=== PATIENT | male | born 1965 | race Caucasian/White ===

== ENCOUNTER → 2019-10-25 | Outpatient (CLI) | payer MEDICARE, OTHER ==
--- NOTE | 2019-10-25 13:27 | RADIOLOGY REPORT (SQ) ---
EXAM DESCRIPTION: BARIUM SWALLOW ESOPHAGUS IMAGES COMPLETED DATE/TIME: 10/25/2019 9:34 am REASON FOR STUDY: DYSPHAGIA, OROPHARYNGEAL PHASE R13.12 DYSPHAGIA, OROPHARYNGEAL PHASE HISTORY OF N [facility] RADIATION. COMPARISON: None. TECHNIQUE: Under fluoroscopic guidance, patient ingested effervescent granules followed by thick and thin barium. Fluoroscopic spot images and routine radiographic images acquired and stored on PACS. 12 MM BARIUM TABLET GIVEN: Barium tablet passed easily through the esophagus and into the stomach wit hout delay. LIMITATIONS: None. FLUOROSCOPY TIME: FLUORO TIME: 2.5 minutes 5 images saved to PACS. FINDINGS: NEUROMUSCULAR COORDINATION OF SWALLOW: Normal. No aspiration. ESOPHAGEAL MOTILITY: Normal peristalsis. No esophageal spasm. ESOPHAGEAL MUCOSA: Small anterior web in the upper esophagus just above the cricopharyngeus. The cri copharyngeus causes a mild posterior impression on the upper esophagus. Normal esophageal mucosa wit hout masses or ulceration. GASTRO-ESOPHAGEAL JUNCTION: Tiny hiatal hernia. No reflux seen. NON-GI TRACT STRUCTURES: No significant finding. OTHER: No other significant finding. IMPRESSION: SMALL ANTERIOR WEB IN THE UPPER ESOPHAGUS WITH MILD CRICOPHARYNGEUS HYPERTROPHY. TINY H IATAL HERNIA. OTHERWISE UNREMARKABLE STUDY RECOMMENDATION: NONE COMMENT: NONE Quality ID [id number]: Final reports for procedures using fluoroscopy that document radiation exposure mildred cresencio, or exposure time and number of fluorographic images (if radiation exposure indices are not avail able) TECHNICAL DOCUMENTATION: JOB ID: [id number] 2010 [employer]- All Rights Reserved Reading location - IP/workstation name: [email or web address] [id number]
== END ==
LOC: RAD 09:05
PROVIDERS: ATTEND Internal Medicine Gastroenterology
DX: K44.9 Diaphragmatic hernia without obstruction or gangrene (principal); J39.2 Other diseases of pharynx; R13.12 Dysphagia, oropharyngeal phase; K21.9 Gastro-esophageal reflux disease without esophagitis
CPT/HCPCS: 74220

== ENCOUNTER 2020-01-26 00:17 | Emergency (ER) | payer MEDICARE, OTHER ==
[2020-01-26] MEDS ORDERED: HYDROMORPHONE HCL INJ/PF 2 MG/ML AMPULE IM ONE (00:44)
--- NOTE | 2020-01-26 00:46 | ER Document Report ---
ED Medical Screen (RME) - General Chief Complaint: Low Back Pain Stated Complaint: LOWER BACK PAIN Time Seen by Provider: 01/26/20 00:37 Primary Care Provider: INES WEAVER MD [Primary Care Provider] - Follow up as needed Mode of Arrival: Medic Information source: Patient Notes: Patient presents complaining of low back pain that started 5 days ago. 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 Patient states that the pain gradually started to worsen and moved midline and shoots up his spine. Patient states that he has had difficulty getting up to ambulate because of the severity of the pain. Patient denies any fever. Patient denies any trauma. Patient denies any history of chronic back pain. Patient does have a history of hypertension and nasopharyngeal cancer that is in remission. I have greeted and performed a rapid initial assessment of this patient. A comprehensive ED assessment and evaluation of the patient, analysis of test results and completion of the medical decision making process will be conducted by additional ED providers. - Related Data Allergies/Adverse Reactions: acetaminophen Allergy (Verified 01/26/20 00:44) amoxicillin [From Augmentin] Allergy (Verified 01/26/20 00:44) clavulanic acid [From Augmentin] Allergy (Verified 01/26/20 00:44) gabapentin Allergy (Verified 01/26/20 00:44) Physical Exam - Vital signs Vitals: Temp Pulse Resp BP Pulse Ox 98.4 F 99 20 132/81 H 97 01/26/20 00:24 01/26/20 00:24 01/26/20 00:24 01/26/20 00:24 01/26/20 00:24 - General General appearance: Alert In distress: Mild Notes: Patient holding self upright in wheelchair, appears uncomfortable. Lower lumbar midline tenderness Course - Vital Signs Vital signs: Temp Pulse Resp BP Pulse Ox 98.4 F 99 20 132/81 H 97 01/26/20 00:24 01/26/20 00:24 01/26/20 00:24 01/26/20 00:24 01/26/20 00:24 Doctor's Discharge - Discharge Referrals: INES WEAVER MD [Primary Care Provider] - Follow up as needed
--- NOTE | 2020-01-26 01:41 | RADIOLOGY REPORT (SQ) ---
EXAM DESCRIPTION: XR LUMBAR SPINE ANTEROPOSTERIOR, LATERAL, AND OBLIQUES COMPLETED DATE/TME: 01/26/2020 00:43 CLINICAL HISTORY: 54 years, Male, low back pain COMPARISON: None. NUMBER OF VIEWS: 5 TECHNIQUE: AP, lateral, spot view of the lumbosacral junction, and bilateral oblique views of the lumbar spine were obtained. LIMITATIONS: None. FINDINGS: There is no fracture, subluxation, or evidence of pars defect. Moderate disc space narrowing with mild marginal osteophyte formation is noted at the L4-L5 level. There is mild disc space narrowing at L5-S1. There is evidence of mild facet arthropathy at the lumbosacral junction. IMPRESSION: Degenerative changes at L4-L5 and L5-S1. copyright 2010 [employer]- All Rights Reserved
[2020-01-26] MEDS ORDERED: KETOROLAC TROMETHAMINE 60 MG/2 ML SDV IM ONE (03:26)
[2020-01-26] MEDS ORDERED: DEXAMETHASONE 4 MG TABLET PO ONE (03:26)
[2020-01-26] MEDS ORDERED: OXYCODONE HCL IR 5 MG TABLET PO ONE (03:27)
[2020-01-26] MEDS ORDERED: DIAZEPAM 5 MG TABLET PO ONE (03:27)
--- NOTE | 2020-01-26 03:37 | ER Document Report ---
ED Neck/Back Problem - General Chief Complaint: Low Back Pain Stated Complaint: LOWER BACK PAIN Time Seen by Provider: 01/26/20 00:37 Primary Care Provider: INES WEAVER MD [Primary Care Provider] - Follow up as needed Mode of Arrival: Medic Notes: CHIEF COMPLAINT: Back pain HPI: 54-year-old male presenting for low back pain over the last 5 days progressively worsening. Patient believes that he tweaked his back at work it was right sided muscular discomfort but today after driving and working he felt like it became much more severe and now has difficulty and stiffness with walking and moving. No incontinence of urine or bowel. Denies numbness or tingling in the lower extremities. Patient is taken no medications at home for his symptoms. Patient states that he did work out yesterday and felt like he reinjured or worsened his back pain after the workout. ROS: See HPI - all other systems were reviewed and are otherwise negative Constitutional: no fever Eyes: no drainage, no blurred vision ENT: no runny nose, no sore throat Cardiovascular: no chest pain Resp: no SOB, no cough GI: no vomiting, no diarrhea, no abdominal pain : no dysuria Integumentary: no rash Allergy: no hives Musculoskeletal: no extremity pain or swelling, positive back pain Neurological: no numbness/tingling, no weakness MEDICATIONS: I agree with the patient medications as charted by the RN. ALLERGIES: I agree with the allergies as charted by the RN. PAST MEDICAL HISTORY/PAST SURGICAL HISTORY: Reviewed and agree as charted by RN. SOCIAL HISTORY: Reviewed and agree as charted by RN. FAMILY HISTORY: No significant familial comorbid conditions directly related to patient complaint EXAM: Reviewed vital signs as charted by RN. CONSTITUTIONAL: Alert and oriented and responds appropriately to questions. Well-appearing; well-nourished HEAD: Normocephalic; atraumatic EYES: Conjunctivae clear, sclerae non-icteric ENT: normal nose; no rhinorrhea; moist mucous membranes NECK: Supple without meningismus; non-tender; no cervical lymphadenopathy, no masses CARD: symmetric distal pulses RESP: Normal chest excursion without splinting or tachypnea ABD/GI: Normal bowel sounds; non-distended; soft, non-tender, no rebound, no guarding; no palpable organomegaly or masses. BACK: The back appears normal and is non-tender to palpation, there is no CVA tenderness EXT: Normal ROM in all joints; non-tender to palpation; no cyanosis, no effusions, no edema SKIN: Normal color for age and race; warm; dry; good turgor; no acute lesions noted NEURO: Moves all extremities equally; Motor and sensory function intact . Strength equal 5/5 bilateral lower extremities. Sensation intact and equal bilateral lower extremities. Straight leg raise is negative. No saddle anesthesia on exam. DTRs 2+ intact and equal bilateral lower extremities. PSYCH: The patient's mood and manner are appropriate. Grooming and personal hygiene are appropriate. MDM: 54-year-old male presenting with low back pain likely a mild radiculopathy. X-ray imaging done via triage process shows degenerative changes. No saddle anesthesia to suggest cauda equina. Will treat patient's pain and refer to orthopedics - Related Data Allergies/Adverse Reactions: acetaminophen Allergy (Verified 01/26/20 00:44) amoxicillin [From Augmentin] Allergy (Verified 01/26/20 00:44) clavulanic acid [From Augmentin] Allergy (Verified 01/26/20 00:44) gabapentin Allergy (Verified 01/26/20 00:44) Home Medications: Ambien, Synthroid, antacid, HTN medication Past Medical History - General Information source: Patient - Social History Smoking Status: Never Smoker Frequency of alcohol use: None Drug Abuse: None Family History: Reviewed & Not Pertinent Patient has homicidal ideation: No Physical Exam - Vital signs Vitals: Temp Pulse Resp BP Pulse Ox 98.4 F 99 20 132/81 H 97 01/26/20 00:24 01/26/20 00:24 01/26/20 00:24 01/26/20 00:24 01/26/20 00:24 Course - Vital Signs Vital signs: Temp Pulse Resp BP Pulse Ox 98.4 F 99 20 132/81 H 97 01/26/20 00:24 01/26/20 00:24 01/26/20 00:24 01/26/20 00:24 01/26/20 00:24 Discharge - Discharge Clinical Impression: Low back pain Qualifiers: Chronicity: acute Back pain laterality: bilateral Sciatica presence: without sciatica Qualified Code(s): M54.5 - Low back pain Condition: Stable Disposition: HOME, SELF-CARE Instructions: Low Back Pain ([facility]) Additional Instructions: 1. Warm heat to the lower back twice daily 2. no heavy lifting for 2-3 days 3. medications as prescribed, no driving on narcotics or muscle relaxers 4. follow up with orthopedics for further evaluation and treatment as needed for any continuing pain or problems, call for appt. 5. return to the ER for any onset of incontinence of urine, fever > 101 or worsening condition Prescriptions: Diazepam [Valium 2 mg Tablet] 2 mg PO Q6HP PRN #15 tablet PRN Reason: Oxycodone HCl [Oxycontin Ir 5 Mg Tablet] 1 - 2 mg PO Q4H PRN #15 tablet PRN Reason: For Pain Diclofenac Sodium [Voltaren 50 Mg Tablet.] 50 mg PO BID #20 tablet. Referrals: INES WEAVER MD [Primary Care Provider] - Follow up as needed PERLITA BHATIA MD [ACTIVE STAFF] - Follow up as needed
[2020-01-26 04:23] VITALS: BP 138/74
== END 2020-01-26 03:56 | disposition home or self-care (01) ==
LOC: ER 00:17
DX: M47.816 Spondylosis without myelopathy or radiculopathy, lumbar region (principal); M47.817 Spondylosis without myelopathy or radiculopathy, lumbosacral region; M54.5 Low back pain; Z79.899 Other long term (current) drug therapy; Z88.8 Allergy status to other drugs, medicaments and biological substances; Z88.0 Allergy status to penicillin; Z88.6 Allergy status to analgesic agent
CPT/HCPCS: 99284; 96372; 72110; A9270 ×3; J1885; J1170; J8540